=== PATIENT | male | born 1970 | race Caucasian/White ===

== ENCOUNTER → 2017-08-07 | Outpatient (CLI) | payer BC ==
[~2017-08-07] MED LIST: VICODIN; VICODIN ES 7.51 EACH PO
--- NOTE | 2017-08-08 17:18 | Diagnostic Imaging Report ---
History: Mid cervical disorder with radiculopathy. Neck pain and shoulder pain patient reports prior C3-C4 fusion June 2013 Comparison studies: None Technique: Sagittal T1, T2 and IR, axial T2 and axial gradient echo Intravenous contrast: None Findings: Alignment: Mild straightening of the cervical spine. No scoliosis. Cervicomedullary junction: No abnormalities. Patent foramen magnum. Soft tissues: 2 or 3 subcentimeter cystic-appearing structures are present within the inferior aspect of the right parotid gland, likely benign. If these have not been evaluated on prior study, formal ultrasound of the right parotid could be considered. Spinal cord: Normal in size and signal from the foramen magnum through T3 Vertebrae: No fractures, infection or neoplasm. Degenerative changes: C2-C3: No abnormalities. C3-C4: Symmetric bulging disc with 1.4 mm of posterior mass effect. Mild narrowing of the spinal canal. Mild left foraminal narrowing. C4-C5: Symmetric bulging disc with 1.4 mm posterior mass effect. Right uncovertebral joint hypertrophy. Moderate to severe right foraminal narrowing. Moderate spinal canal narrowing. C5-C6: Loss of T2 signal within the disc. Symmetric bulging disc with 1 mm of posterior mass effect. Right uncovertebral joint hypertrophy. [id number] right foraminal narrowing. Mild spinal canal narrowing. C6-C7: Postoperative changes from C6 to C7 fusion. No residual disc space. No significance spinal canal or foraminal narrowing. C7-T1: No abnormalities. IMPRESSION: 1. Degenerative disc and uncovertebral joint hypertrophy greatest at C4-C5 resulting in moderate to severe right foraminal narrowing and moderate spinal canal narrowing. 2. Postoperative changes from ACDF at C6-C7 (patient self reports prior surgery at C3-C4) 3. Subcentimeter cysts within the inferior aspect of the right parotid Signed by: Dr. Matthew Chacon M.D. on 08/08/2017 5:14 PM
== END ==
LOC: MRI 14:48
PROVIDERS: ATTEND Neurological Surgery
DX: M50.120 Mid-cervical disc disorder, unspecified level (principal)
CPT/HCPCS: 72141

== ENCOUNTER 2017-08-10 08:52 | Observation (INO) | payer BC ==
[~2017-08-10] VITALS: Ht 180.3 cm; Wt 104.3 kg
[~2017-08-10 08:52] MED LIST changes: +BACITRACIN 50,000 UNIT VIAL ONE; +GELATIN SPONGE SZ 100 ONE; +LIDOCAINE 1% W/EPINEPHRINE 20 ML VIAL ONE; +LIDOCAINE HCL (LTA) 4 ML SOLN ONE; +THROMBIN FOR SOLN 5,000 UNIT VIAL ONE
--- OUTSIDE RECORDS SUMMARY | 2017-08-10 08:55 | XMS REPORT ---
Author Author [facility] Address Unknown Phone Unavailable Care Team Providers Care [employer] Support Manager Name Role Phone APOLONIA MORENO Unavailable Unavailable Problems This patient has no known problems. Allergies, Adverse Reactions, Alerts This patient has no known allergies or adverse reactions. Medications This patient has no known medications. Results Test Description Test Time Test Comments Text Results Atomic Results Result Comments MRI SPINE CERVICAL WO [place] [address] Patient Name: ERIC OCONNOR MR #: [id number] : 1970 Age/Sex: 46/M Req # : [id number] Adm Physician: Ordered by: APOLONIA MORENO MD Report #: [id number] Location: MRI Room/Bed: Procedure: [id number] 0015 MRI/MRI SPINE CERVICAL WO Exam Date: Exam Time : REPORT STATUS: Signed History: Mid cervical disorder with radiculopathy. Neck pain and shoulder pain patient reports prior C3-C4 fusion June 2013 Comparison studies: None Technique: Sagittal T1, T2 and IR, axial T2 and axial gradient echo Intravenous contrast: None Findings: Alignment: Mild straightening of the cervical spine. No scoliosis. Cervicomedullary junction: No abnormalities. Patent foramen magnum. Soft tissues: 2 or 3 subcentimeter cystic-appearing structures are present within the inferior aspect of the right parotid gland, likely benign. If these have not been evaluated on prior study, formal ultrasound of the right parotid could be considered. Spinal cord: Normal in size and signal from the foramen magnum through T3 Vertebrae: No fractures, infection or neoplasm. Degenerative changes: C2-C3: No abnormalities. C3- C4: Symmetric bulging disc with 1.4 mm of posterior mass effect. Mild narrowing of the spinal canal. Mild left foraminal narrowing. C4-C5: Symmetric bulging disc with 1.4 mm posterior mass effect. Right uncovertebral joint hypertrophy. Moderate to severe right foraminal narrowing. Moderate spinal canal narrowing. C5-C6: Loss of T2 signal within the disc. Symmetric bulging disc with 1 mm of posterior mass effect. Right uncovertebral joint hypertrophy. [id number] right foraminal narrowing. Mild spinal canal narrowing. C6-C7: Postoperative changes from C6 to C7 fusion. No residual disc space. No significance spinal canal or foraminal narrowing. C7-T1: No abnormalities. IMPRESSION: 1. Degenerative disc and uncovertebral joint hypertrophy greatest at C4-C5 resulting in moderate to severe right foraminal narrowing and moderate spinal canal narrowing. 2. Postoperative changes from ACDF at C6-C7 (patient self reports prior surgery at C3-C4) 3. Subcentimeter cysts within the inferior aspect of the right parotid Signed by: Dr. Matthew Humphrey M.D. on 2017 5:14 PM Dictated By: MATTHEW HUMPHREY MD 13 Transcribed By: WANDY on 08/08/171713 COPY TO: APOLONIA MORENO MD
[2017-08-10 09:50] LABS: BASOPHILS # (AUTO) 0.1 (0.0-0.1); BASOPHILS % 0.7 % (0.0-1.0); EOSINOPHILS # (AUTO) 0.4 (0.0-0.4); EOSINOPHILS % 5.4 % (0.0-6.0); HEMATOCRIT 43.3 % (38.2-49.6); HEMOGLOBIN 15.3 g/dL (14.0-18.0); LYMPHOCYTES # (AUTO) 3.2 (1.0-3.2); LYMPHOCYTES % 39.2 % (18.0-39.1); MEAN CORPUSCULAR HEMOGLOBIN 30.7 pg (28-32); MEAN CORPUSCULAR HGB CONC 35.3 g/dL (31-35); MEAN CORPUSCULAR VOLUME 86.8 fL (81-99); MONOCYTES # (AUTO) 0.6 (0.2-0.8); MONOCYTES % 7.4 % (4.4-11.3); NEUTROPHILS # (AUTO) 3.9 (2.1-6.9); NEUTROPHILS % 46.9 % (38.7-80.0); PLATELET COUNT 218 x10e3/uL (140-360); RED BLOOD COUNT 4.99 x10e6/uL (4.3-5.7); RED CELL DISTRIBUTION WIDTH 12.3 % (11.7-14.4)
[2017-08-10] MEDS ORDERED: CEFAZOLIN SOD 1 GM VIAL ONE (09:59)
[2017-08-10 10:08] LABS: ANION GAP 13.9 mmol/L (8-16); BLOOD UREA NITROGEN 15 mg/dL (7-26); BUN/CREATININE RATIO 15 (6-25); CALCIUM 9.1 mg/dL (8.4-10.2); CARBON DIOXIDE 21 mmol/L (22-29); CHLORIDE 105 mmol/L (98-107); CREATININE, SERUM 0.98 mg/dL (0.72-1.25); EST GLOMERULAR FILTRATION RATE > 60 ML/MIN (60-); GLUCOSE 159 mg/dL (74-118); POTASSIUM 3.9 mmol/L (3.5-5.1); SODIUM 136 mmol/L (136-145)
[2017-08-10] MEDS ORDERED: CEPACOL SORE THROAT LOZENGES PO PRN (16:00)
[2017-08-10] MEDS ORDERED: MAGNESIUM/ALUMINUM/SIMETHICONE 30 ML UDC PO PRN (16:00)
[2017-08-10] MEDS ORDERED: MORPHINE SULFATE 5 MG/ML VIAL IM PRN (16:00)
[2017-08-10] MEDS ORDERED: PROMETHAZINE HCL (IM) 25 MG/ML VIAL IM PRN (16:00)
[2017-08-10] MEDS ORDERED: ACETAMINOPHEN 325 MG TAB PO PRN (16:00)
[2017-08-10] MEDS ORDERED: CARISOPRODOL 350 MG TAB PO PRN (16:00)
[2017-08-10] MEDS ORDERED: OXYCODONE/ACETAMINOPHEN 5-325 1 EACH TABLET PO PRN (16:00)
[2017-08-10] MEDS ORDERED: FENTANYL CITRATE/PF 100MCG/2 ML INJ ONE ×2 (16:18→18:31)
--- NOTE | 2017-08-10 16:33 | Operative Report ---
DATE OF PROCEDURE: August 10, 2017 PREOPERATIVE DIAGNOSIS: C4-C5 and C5-C6 spondylosis and disk herniation with radiculopathy, above the level of previous C6-7 fusion, M50.120. POSTOPERATIVE DIAGNOSIS: C4-C5 and C5-C6 spondylosis and disk herniation with radiculopathy, above the level of previous C6-7 fusion, M50.120. PROCEDURES: 1. C4-C5 anterior cervical diskectomy and microsurgical osteophyte resection and allograft fusion, 27600. 2. C5-C6 anterior cervical diskectomy and microsurgical osteophyte section and allograft fusion, . 3. Preparation of iliac crest allograft, . 4. C4-C5 and C5-C6 anterior cervical plating with Synthes plate, 96039. 5. Removal of C6-7 anterior cervical plate, 43647. 6. Exploration of C6-7 fusion, 04303. ANESTHESIA: General. INDICATIONS: The patient is a 46-year-old man who has previously undergone C6-7 ACF by ia in the distant past. He now presents with C4-C5 and C5-C6 spondylosis and disk herniations symptomatic with severe right C5 radiculopathy with deltoid weakness. He was taken to the operating room for removal of the all the previous C6-7plate and extension of the decompression and fusion to the C4-C5 and C5-6 segments. PROCEDURE: After induction of general anesthesia, the patient was placed on the operating table in the supine position. The right side of the neck was prepped and draped in sterile fashion. Under fluoroscopic C-arm, was positioned in cross-table lateral orientation. A transverse incision was created on right side of the neck superimposed on C5-C6 disk space as determined by fluoroscopy. The platysma was divided in line with the incision. A subplatysmal dissection was carried out. An avascular plane of dissection was developed medial to the sternocleidomastoid muscle and was followed medial to the carotid sheath to the anterior border of the cervical spine. The deep cervical fascia was opened. The scar overlying the previous C6-7 plate was resected. The bony overgrowth over the upper aspect of the plate was taken down with rongeurs. The 4 locking screws within the previous Synthes plate were removed. Four bone screws were removed. The plate was mobilized and removed. The underlying C6-7 fusion was explored and found to be solid. Attention was directed to the C4-C5 and C5-C6 segments. The anterior longitudinal ligament was resected. The attachments of longus coli muscles and the anterolateral aspects of vertebral bodies were resected. [place] posts were inserted into C4 and C6. The [place] distractor was used to distract both disk spaces simultaneously. The anterior annuli of disks were incised with a number 11 blade and the contents of both disks were thoroughly evacuated with angled curets and pituitary rongeurs. The posterior osteophytes were meticulously drilled with a 2 mm cutting bur on a high-speed drill until they were completely removed. The posterior annulus of the disk, chronically herniated disk material and the posterior longitudinal ligament were resected layer by layer until the dura was fully exposed and decompressed. The medial aspects of uncinate processes were resected bilaterally with particular attention given to the right C4-C5 hypertrophic uncinate process to fully expose and decompress the origins of the corresponding nerve roots. After satisfactory decompression had been achieved, the endplates were prepared for fusion. Two pieces of tricortical iliac crest allograft were cut to size and shapes of the disk spaces and inserted into disk spaces under distraction and fluoroscopic guidance. The distraction was released. The distraction posts were removed. A Synthes CSLP variable type anterior cervical plate measuring 34 mm was selected and affixed to the vertebral bodies of C4-C5 and C6 with 3 pairs of 16 mm screws. All screw holes were drilled and tapped under lateral fluoroscopic guidance. All screws were locked with the appropriate locking screws. Excellent construct was obtained. The wound was copiously irrigated with Bacitracin solution. Meticulous hemostasis was secured. Retractor was removed. A Hemovac drain was placed over the plate and brought out through a separate stab incision. The platysma was closed with 3-0 Vicryl sutures. The skin was closed with 4-0 Monocryl sutures in subcuticular fashion. Steri strips and dressing were applied. The patient was awakened, extubated and taken to the post anesthesia care unit in stable condition. No intraoperative complications were encountered. Estimated blood loss was 50 mL. Job#: [id number]
[2017-08-10 17:20] VITALS: BP 116/70
[2017-08-10 17:52] VITALS: BP 116/70
[2017-08-10 17:59] VITALS: BP 116/70
[2017-08-10] MEDS ORDERED: MIDAZOLAM HCL 2 MG/2 ML VIAL ONE (18:31)
[2017-08-10] MEDS ORDERED: SEVOFLURANE INHAL SOLN 250 ML PEN BTL ONE (18:39)
[2017-08-10] MEDS ORDERED: ROCURONIUM BROMIDE 10 MG/ML 5ML VIAL ONE (18:39)
[2017-08-10] MEDS ORDERED: DEXAMETHASONE SOD PHOS INJ 4 MG/ML VIAL ONE (18:39)
[2017-08-10] MEDS ORDERED: ONDANSETRON HCL INJ 2 MG/ML VIAL ONE (18:39)
[2017-08-10] MEDS ORDERED: LIDOCAINE HCL 2% LOCAL INJ 5 ML SDV VIAL INJ ONE (18:39)
[2017-08-10] MEDS ORDERED: PROPOFOL IV EMULSION 10 MG/ML 20 ML VIAL ONE (18:39)
[2017-08-10] MEDS ORDERED: ACETAMINOPHEN 1000 MG/100 ML IV ONE (18:39)
[2017-08-10 20:00] VITALS: BP 112/60
[2017-08-10] MEDS: ONDANSETRON HCL INJ 2 MG/ML VIAL IV PRN (20:37)
[2017-08-10] MEDS: HYDROMORPHONE 2MG/ML INJ IV PRN (20:37)
[2017-08-10] MEDS ORDERED: ZOLPIDEM TARTRATE 5 MG TAB PO PRN (21:00)
[2017-08-10] MEDS ORDERED: CEFAZOLIN SOD 1 GM/NS 50ML 50 ML IV SCH (22:00)
[2017-08-10] MEDS: CEFAZOLIN SOD 1 GM VIAL IV SCH (22:00)
[2017-08-11] VITALS: BP 114/64
[2017-08-11] MEDS: LACTATED RINGER'S 1,000 ML IV SCH ×2 (00:14→09:27)
[2017-08-11] MEDS: HYDROMORPHONE 2MG/ML INJ IV PRN ×3 (00:57→09:28)
[2017-08-11] MEDS: ONDANSETRON HCL INJ 2 MG/ML VIAL IV PRN ×3 (00:57→09:28)
[2017-08-11 01:40] VITALS: BP 112/60
[2017-08-11 04:00] VITALS: BP 120/69
[2017-08-11] MEDS: CEFAZOLIN SOD 1 GM VIAL IV SCH (06:07)
[2017-08-11 07:56] VITALS: BP 118/67
--- NOTE | 2017-08-11 08:44 | Diagnostic Imaging Report ---
PROCEDURE:C-SPINE 2 VIEWS AP \T\ LATERAL TECHNIQUE:AP and lateral cervical spine INDICATION:Postoperative evaluation COMPARISON:[facility], DX, C-SPINE 2 VIEWS AP \T\ LATERAL, 07/27/2012, 7:48. FINDINGS: Cervical spine evaluated from the skull base through C6-C7. C7 is obscured by the shoulders. Interval removal of anterior cervical fusion hardware at C6-C7, with interval anterior screw and plate fixation of C4-C6. Expected regional postsurgical changes without acute abnormality. Alignment is anatomic. Regional skeleton is intact. CONCLUSION: 1. Interval removal of C6-C7 fixation hardware with interval fixation of C4-C6. 2. Expected regional postsurgical changes without acute abnormality. Dictated by: Hiram Brennan M.D. on 08/11/2017 at 8:43 Electronically approved by: Hiram Brennan M.D. on 08/11/2017 at 8:43
== END 2017-08-11 11:38 | disposition home or self-care (01) ==
LOC: OR 08:52 → MED/SURG 16:58
PROVIDERS: ADMIT Neurological Surgery; ATTEND Neurological Surgery
DX: M50.121 Cervical disc disorder at C4-C5 level with radiculopathy (principal); M47.22 Other spondylosis with radiculopathy, cervical region
CPT/HCPCS: 20931; 22551; 22552; 22830; 22855; 36415; 72040; 77003; 80048; 85025; 86850; 86900; 88300; 88304; 93005; C1763; G0378 ×2; J0690 ×2; J1100; J1170 ×2; J2001; J2250; J2405 ×2; J7120 ×2; C1713

== ENCOUNTER 2021-10-28 07:05 | Observation (INO) | payer BC ==
[2021-10-26 12:30] LABS: BASOPHILS # (AUTO) 0.1 (0.0-0.1); BASOPHILS % 0.7 % (0.0-1.0); EOSINOPHILS # (AUTO) 0.5 (0.0-0.4); EOSINOPHILS % 4.4 % (0.0-6.0); LYMPHOCYTES # (AUTO) 2.6 (1.0-3.2); LYMPHOCYTES % 25.8 % (18.0-39.1); MEAN CORPUSCULAR HEMOGLOBIN 32.7 pg (28-32); MEAN CORPUSCULAR HGB CONC 34.8 g/dL (31-35); MEAN CORPUSCULAR VOLUME 94.1 fL (81-99); MONOCYTES # (AUTO) 0.6 (0.2-0.8); MONOCYTES % 5.6 % (4.4-11.3); NEUTROPHILS # (AUTO) 6.4 (2.1-6.9); NEUTROPHILS % 62.9 % (38.7-80.0); PLATELET COUNT 226 x10e3/uL (140-360); RED BLOOD COUNT 4.89 x10e6/uL (4.3-5.7); RED CELL DISTRIBUTION WIDTH 13.1 % (11.7-14.4)
[2021-10-26 13:01] LABS: INR 0.93; PROTHROMBIN TIME 13.3 seconds (11.9-14.5)
[2021-10-26 13:05] LABS: ANION GAP 13.9 mmol/L (8-16); CALCIUM 9.2 mg/dL (8.4-10.2); CREATININE, SERUM 1.01 mg/dL (0.72-1.25); POTASSIUM 3.9 mmol/L (3.5-5.1)
[~2021-10-28 07:05] MED LIST changes: -BACITRACIN 50,000 UNIT VIAL ONE; -GELATIN SPONGE SZ 100 ONE; -LIDOCAINE 1% W/EPINEPHRINE 20 ML VIAL ONE; -LIDOCAINE HCL (LTA) 4 ML SOLN ONE; -THROMBIN FOR SOLN 5,000 UNIT VIAL ONE
[2021-10-28] MEDS ORDERED: Vancomycin IV 1 GM VIAL ONE (07:28)
[2021-10-28] MEDS ORDERED: THROMBIN FOR SOLN 5,000 UNIT VIAL ONE (07:28)
[2021-10-28] MEDS ORDERED: LIDOCAINE 1% W/EPINEPHRINE 20 ML VIAL ONE (07:28)
[2021-10-28] MEDS ORDERED: HYDROCODON-ACE1 EA12 PO (10:12)
[2021-10-28] MEDS ORDERED: HYDROMORPHONE 2MG/ML 2 MG/ML ML IV PRN (10:15)
[2021-10-28] MEDS ORDERED: MAGNESIUM/ALUMINUM/SIMETHICONE 30 ML UDC PO PRN (10:15)
[2021-10-28] MEDS: LACTATED RINGER'S 1,000 ML IV SCH ×2 (10:15→18:35)
[2021-10-28] MEDS ORDERED: CEPACOL SORE THROAT LOZENGES PO PRN (10:15)
[2021-10-28] MEDS ORDERED: PROMETHAZINE HCL (IM) 25 MG/ML VIAL IM PRN (10:15)
[2021-10-28] MEDS ORDERED: MORPHINE SULFATE 5 MG/ML VIAL IM PRN (10:15)
[2021-10-28] MEDS ORDERED: ACETAMINOPHEN 325 MG TAB PO PRN (10:15)
[2021-10-28] MEDS ORDERED: CARISOPRODOL 350 MG TAB PO PRN (10:15)
[2021-10-28] MEDS ORDERED: ZOLPIDEM TARTRATE 5 MG TAB PO PRN (10:15)
[2021-10-28] MEDS ORDERED: ONDANSETRON HCL INJ 2MG/ML 2ML 2 MG/ML VIAL IV PRN (10:15)
[2021-10-28] MEDS ORDERED: FENTANYL CITRATE/PF 100MCG/2 ML INJ ONE ×2 (10:33→13:22)
[2021-10-28 11:25] VITALS: BP 117/89
[2021-10-28 11:30] VITALS: BP 117/89
[2021-10-28] MEDS ORDERED: ROCURONIUM BROMIDE 10 MG/ML 5ML VIAL IV ONE (12:22)
[2021-10-28] MEDS ORDERED: ONDANSETRON HCL INJ 2MG/ML 2ML 2 MG/ML VIAL ONE (12:22)
[2021-10-28] MEDS ORDERED: DEXAMETHASONE SOD PHOS INJ 4 MG/ML SDV ONE (12:22)
[2021-10-28] MEDS ORDERED: POVIDONE IODINE 0.05% 0.05 % ML PO ONE (12:22)
[2021-10-28] MEDS ORDERED: LIDOCAINE HCL 2% LOCAL INJ 5 ML SDV VIAL INJ ONE (12:22)
[2021-10-28] MEDS ORDERED: PROPOFOL IV EMULSION 10 MG/ML 20 ML VIAL ONE (12:22)
[2021-10-28] MEDS ORDERED: SEVOFLURANE INHAL SOLN 250 ML PEN BTL ONE (12:22)
[2021-10-28] MEDS ORDERED: MIDAZOLAM HCL 2 MG/2 ML VIAL ONE (13:22)
[2021-10-28] MEDS: OXYCODONE/ACETAMINOPHEN 5-325 1 EACH TABLET PO PRN ×2 (15:18→21:56)
[2021-10-28 15:34] VITALS: BP 118/95
[2021-10-28 17:00] VITALS: BP 118/95
[2021-10-28] MEDS ORDERED: SODIUM CHLORIDE 0.9% 250ML 250 ML ONE (17:34)
[2021-10-28 20:00] VITALS: BP 112/75
[2021-10-29 00:02] VITALS: BP 114/79
[2021-10-29] MEDS: LACTATED RINGER'S 1,000 ML IV SCH (02:55)
[2021-10-29 03:49] VITALS: BP 120/89
[2021-10-29] MEDS: OXYCODONE/ACETAMINOPHEN 5-325 1 EACH TABLET PO PRN ×2 (06:22→10:51)
[2021-10-29 07:59] VITALS: BP 117/74
[2021-10-29 09:00] VITALS: BP 117/74
== END 2021-10-29 11:54 | disposition home or self-care (01) ==
LOC: OR 07:05 → PACU V 10:11 → MED/SURG2 11:22
PROVIDERS: ADMIT Neurological Surgery; ATTEND Neurological Surgery
DX: M51.16 Intervertebral disc disorders with radiculopathy, lumbar region (principal); R73.03 Prediabetes; K21.9 Gastro-esophageal reflux disease without esophagitis; Z87.11 Personal history of peptic ulcer disease; F17.210 Nicotine dependence, cigarettes, uncomplicated; Z01.810 Encounter for preprocedural cardiovascular examination; Z01.812 Encounter for preprocedural laboratory examination; Z01.818 Encounter for other preprocedural examination; Z20.822 Contact with and (suspected) exposure to COVID-19
CPT/HCPCS: 36415 ×2; 63056; 69990; 71046; 72020; 80048; 82948; 85025; 85610; 85730; 86850; 86900; 88304; 88311; 93005; G0378 ×2; J0690 ×2; J1100; J2001; J2250; J2405; J2704; J3010; J3370; J7050; U0002